=== PATIENT | female | born 1950 | race Caucasian/White ===

== ENCOUNTER 2025-05-04 11:47 | Emergency (ER) | payer MEDICAID ==
[~2025-05-04] VITALS: Ht 157.5 cm; Wt 65.0 kg
[2025-05-04 11:58] VITALS: O2SAT 99
[2025-05-04] MEDS ORDERED: IBUP-2028 MT (14:22)
[2025-05-04] MEDS: KETOROLAC 30MG/ML VIAL IM ONE (14:33)
[2025-05-04 14:37] VITALS: BP 140/78; PULSE 83; RESP 16; TEMP 36.7; O2SAT 99
== END 2025-05-04 14:38 | disposition home or self-care (01) ==
LOC: ER 11:47
DX: M25.561 Pain in right knee (principal); I10 Essential (primary) hypertension; E78.00 Pure hypercholesterolemia, unspecified; M10.9 Gout, unspecified
CPT/HCPCS: 99283; 73562; 96372; J1885